=== PATIENT | female | born 1950 | race Caucasian/White ===

== ENCOUNTER 2020-06-11 10:35 | Emergency (ER) | payer MEDICARE ==
[2020-06-11] MEDS ORDERED: Dexamethasone 4 mg/ml Vial ONE (11:00)
== END 2020-06-11 11:04 | disposition home or self-care (01) ==
LOC: BURERS 10:39
DX: M06.9 Rheumatoid arthritis, unspecified (principal)
CPT/HCPCS: 96372; 99283; J1100